=== PATIENT | female | born 1945 | race Caucasian/White ===

== ENCOUNTER 2017-07-05 07:23 | Inpatient (IN) | payer OTHER ==
[2017-07-05] VITALS (10 sets, daily range): BP systolic 93–134; BP diastolic 50–98
[~2017-07-05] VITALS: Ht 152.4 cm; Wt 88.5 kg
--- NOTE | ~2017-07-05 | O ---
[place], [place] OPERATIVE NOTE NAME: CIARA SANTA UNIT #: [id number] ROOM: 403 DOCTOR: YAEL KELLY MD BIRTHDATE: [birth year] DOS: GASTROENDOSCOPIC REPORT INDICATIONS: A 71-year-old patient who has presented with chief complaint of abdominal pain, nonspecific, patient with new onset atrial fibrillation. The patient with a slow cognition, hypothyroidism, bipolar and gastroesophageal reflux history. PROCEDURE: Today's procedure part of investigation is panendoscopy. PREMEDICATION: Versed and Diprivan. SCOPE: Olympus forward-viewing gastroscope Q10 video. REPORT: After putting the patient in the left lateral position and after application of lubricant to the scope, the scope was introduced. Thereafter, under direct visualization, I advanced through the length of esophagus without difficulty. Gastric pouch was entered. Mild gastritis seen. Duodenal nodule, duodenal bulb and second part of the duodenum connection was noticed. This nodule looks like hypertrophic Traci's gland; however, duodenal infiltration cannot be ruled out. We could not take biopsy from this patient since she has already had a Lovenox this morning and has been on order for Xarelto. We are going to keep the patient on Protonix 40 mg daily and we are going to organize a colonoscopy on her while she is in the hospital withholding Xarelto and Lovenox since she is going to be exposed to procedure and after that we are going to resume Xarelto therapy and Lovenox as may necessary. However, today, she can be restarted on Lovenox as well as tomorrow, but we will hold for Tuesday reassessment. YAEL KELLY MD CM:OPRECORD:OPERATIVE NOTE [id number] 50 YAEL KELLY MD 07/06/17 165 interface
--- NOTE | ~2017-07-05 | O ---
[place], [place] OPERATIVE NOTE NAME: CIARA SANTA UNIT #: [id number] ROOM: 403 DOCTOR: YAEL KELLY MD BIRTHDATE: [birth year] DOS: GASTROENDOSCOPIC REPORT. The patient has presented with abdominal pain, undergoing investigation. PROCEDURE: Today's procedure part of investigation is colonoscopy plus large colonic polyp at sigmoid colon, status post polypectomy with a snare. PREMEDICATION: Versed and Diprivan. SCOPE: Olympus forward-viewing colonoscope 10L video. REPORT: After putting the patient in the left lateral position and after application of lubricant to rectal pouch and digital examination, scope was introduced; thereafter, under direct visualization, advanced through the length of colon without difficulty. At sigmoid colon, a large polypoid lesion was snare polypectomized. Sample recovered. Scattered diverticulosis throughout the length of colon identified, base of the cecum explored, appendiceal orifice identified, and ileocecal valve was defined and photographed. The patient extubated, tolerated procedure well. IMPRESSION: Large colonic polyp at sigmoid colon, status post snare polypectomy, diverticulosis. PLAN AND DISCUSSION: Withholding anticoagulants 3 days, soft diet today, Protonix 40 mg daily and future evaluation of pathology on the polyp and pathology on the duodenal diverticulum. YAEL KELLY MD CM:OPRECORD:OPERATIVE NOTE 1105 [id number] YAEL KELLY MD 07/08/17 1707 interface
--- NOTE | ~2017-07-05 | CON ---
[place], [place] REPORT OF CONSULTATION NAME: CIARA SANTA UNIT #: [id number] ROOM: 403 DOCTOR: YAEL KELLY MD BIRTHDATE: [birth year] DOS: 07/06/2017 HISTORY OF PRESENT ILLNESS: A 71-year-old patient who has presented with chief complaint of abdominal pain. She mentions every day that in the morning she wakes up, she has abdominal pain. She is pointing somewhere mid abdomen and lower abdomen as well. The patient has been on anticoagulant. PAST MEDICAL HISTORY: Some difficulty with speech, hypothyroidism, renal lithiasis, duodenal ulcer, gastritis, bipolar disorder, renal insufficiency, gastroesophageal reflux. PAST SURGICAL HISTORY: Cholecystectomy, partial hysterectomy, renal stents, peripheral vascular surgery. SOCIAL HISTORY: Past smoker. Nonalcohol consumer. FAMILY HISTORY: Noncontributory. ALLERGIES: No known. MEDICATIONS: List has been reviewed. REVIEW OF SYSTEMS: HEENT: Denies double vision, blurred vision. RESPIRATORY: Denies acute shortness of breath. CARDIOVASCULAR: Denies acute chest pain. DIGESTIVE SYSTEM: Epigastric abdominal pain. PHYSICAL EXAMINATION: VITAL SIGNS: Borderline obese. HEENT: Head normocephalic, nontraumatic. Mouth and buccal mucosa benign, edentulous, no apthoid ulcer. NECK: Supple, no thyromegaly, no cervical lymphadenopathy. CHEST: Symmetric anatomy, equal expansion. No wheeze, no rhonchi. HEART: Normal sinus rhythm, no gallop, no murmur. ABDOMEN: Obese, large, soft. No hepato-organomegaly. Bowel sounds present. No pulsatile mass. EXTREMITIES: No cyanosis, no pedal edema. NEUROLOGIC: Alert and oriented, slow; however. IMPRESSION: Epigastric abdominal pain, history of atrial fibrillation, nephrolithiasis, hypothyroidism, gastroesophageal reflux disease symptomatology, bipolar disorder, renal insufficiency history. Due to the ambiguity of the symptomatology and expression, we are going to organize an endoscopy on her. Labs and records have been reviewed. Her lactic acid has been 1.2. Comprehensive metabolic panel: BUN and creatinine of 13 and 1.19 was noticed. Her chemistry normal. Liver function test normal. CT scan of the abdomen and pelvis, no acute process was reported. Troponin has been within normal limits. INR 1.1. Urine cultures have no bacteria. Hemoglobin [place], [place] REPORT OF CONSULTATION NAME: CIARA SANTA UNIT #: [id number] ROOM: 403 DOCTOR: YAEL KELLY MD BIRTHDATE: [birth year] A1c 5.6. PLAN AND DISCUSSION: Endoscopic assessment of upper tract and clinical reassessment. Recent KUB nonobstructive bowel pattern, bilateral nonobstructing renal calculi. YAEL KELLY MD CM:CONSTR:REPORT OF CONSULTATION 1448 07/07/17 0726 interface
--- NOTE | ~2017-07-05 | O ---
[place], [place] OPERATIVE NOTE NAME: CIARA SANTA UNIT #: [id number] ROOM: 403 DOCTOR: YAEL KELLY MD BIRTHDATE: [birth year] DOS: 07/08/2017 GASTROENDOSCOPIC REPORT. HISTORY OF PRESENT ILLNESS: This is a 71-year-old patient who has presented with abdominal pain, undergoing workup. The patient has been on anticoagulant. The patient was found to have a duodenal mass; however, 3 days ago, we could not biopsy the mass because the patient was actively on anticoagulants. Anticoagulant has been placed on hold. Her H and H has been followed. Her blood culture has been negative. PROCEDURE: Today's procedure part of investigation is panendoscopy plus biopsy of duodenal mass. PREMEDICATION: Versed and Diprivan. SCOPE: Olympus forward-viewing gastroscope Q10 video. REPORT: After putting the patient in the left lateral position and after application of lubricant to the scope, the scope was introduced. Thereafter, under direct visualization, I advanced through the length of the esophagus without difficulty. Esophagus cervicothoracic distally carefully examined. Multiple esophageal varicosity blebs were identified. This signifies underlying liver disease. Gastric pouch was entered. Mild gastritis seen in the duodenum. There is a mass in duodenal bulb. This is either hypertrophic Traci gland or primary mass. Therefore, multiple biopsies obtained. Scope was gradually withdrawn. The patient extubated, tolerated procedure well. IMPRESSION: Duodenal mass, status post biopsy, ruling out dysplastic cells, gastritis, esophageal varicosity blebs. I have reviewed the CT scan. The CT scan confirmatory of underlying liver disease with fatty infiltration, etiology of which is unclear; however, MISHRA is a possibility and it explains the portal pressure elevation and as a result esophageal varicosities. PLAN AND DISCUSSION: We are going to hold the anticoagulants for 3 days and restart in 3 days. Furthermore, we are going to proceed with colonoscopic evaluation today. [place], [place] OPERATIVE NOTE NAME: CIARA SANTA UNIT #: [id number] ROOM: 403 DOCTOR: YAEL KELLY MD BIRTHDATE: [birth year] YAEL KELLY MD CM:OPRECORD:OPERATIVE NOTE 1105 [id number] YAEL KELLY MD 07/08/17 1719 interface
[~2017-07-05 07:23] MED LIST: ALAVERT10 M1 PO; CIPRO500 MG PO; FLAGYL500 MG PO; LEVOTHYROXIN0.075 MG PO; LEVOXYL0.025 MG PO; NORCO 325 MG-51 TAB PO; PAROXETIN10 MG PO; VENTOLIN0.09 MG/AC INH; ZANTAC150 MG PO
[2017-07-05 07:58] LABS: BASO # 0.1 10*3/uL (0.0-0.1); BASO % 0.6 % (0.0-1.0); EOS # 0.2 10*3/uL (0.0-0.4); EOS % 2.3 % (1.0-4.0); HEMATOCRIT 48.8 % (37.0-47.0); HEMOGLOBIN 15.9 g/dl (12.0-16.0); LYMPH # 2.8 10*3/uL (1.3-4.4); LYMPH % 27.9 % (27.0-41.0); MEAN CORPUSCULAR HGB 29.7 pg (27.0-31.0); MEAN CORPUSCULAR HGB CONC 32.6 g/dl (33.0-37.0); MEAN PLATELET VOLUME 12.1 fl (9.6-12.3); MONO # 0.6 10*3/uL (0.1-1.0); MONO % 5.5 % (3.0-9.0); NEUT # 6.3 10*3/uL (2.3-7.9); NEUT % 63.3 % (47.0-73.0); PLATELET COUNT AUTOMATED 195 10*3/uL (130-400); RED BLOOD COUNT 5.36 10*6/uL (4.10-5.10); RED CELL DISTRI WIDTH 13.3 % (0-14.5); WHITE BLOOD COUNT 9.9 10*3/uL (4.8-10.8)
[2017-07-05 08:14] LABS: ALBUMIN 3.8 gm/dl (3.1-4.5); ALKALINE PHOSPHATASE 96 U/L (45-117); BUN 13 mg/dl (7-24); CHLORIDE 103 mmol/L (98-107); CREATININE 1.19 mg/dL (0.55-1.02); POTASSIUM 3.9 mmol/L (3.5-5.1); SGOT/AST 24 IU/L (3-35); SGPT/ALT 24 U/L (12-78); SODIUM 141 mmol/L (136-145); TOTAL PROTEIN 8.3 gm/dL (6.4-8.2)
[2017-07-05 08:15] LABS: TROPONIN I < 0.015 ng/ml (<0.045)
[2017-07-05 09:21] LABS: BILIRUBIN 1+ (NEGATIVE); BLOOD TRACE-INTACT (NEGATIVE); CLARITY SL CLOUDY (CLEAR); COLOR YELLOW (YELLOW); GLUCOSE NEGATIVE (NEGATIVE); KETONE NEGATIVE (NEGATIVE); LEUKO ESTERASE NEGATIVE (NEGATIVE); NITRITE NEGATIVE (NEGATIVE); PH 5.5 (5.0-9.0); SPECIFIC GRAVITY 1.025 (1.005-1.030); UROBILINOGEN 0.2 E.U./dl (0.2-1.0)
[2017-07-05 09:46] LABS: BACTERIA TRACE; CALCIUM OXALATE CRYSTALS TRACE; EPITHELIAL CELLS 18-20
[2017-07-06] VITALS (10 sets, daily range): BP systolic 95–169; BP diastolic 65–103
[2017-07-06 07:08] LABS: BASO % 0.8 % (0.0-1.0); EOS # 0.3 10*3/uL (0.0-0.4); EOS % 4.9 % (1.0-4.0); LYMPH # 1.5 10*3/uL (1.3-4.4); LYMPH % 28.3 % (27.0-41.0); MEAN CELL VOLUME 94.8 fl (81.0-99.0); MEAN CORPUSCULAR HGB 30.4 pg (27.0-31.0); MEAN PLATELET VOLUME 12.4 fl (9.6-12.3); MONO # 0.5 10*3/uL (0.1-1.0); NEUT # 2.9 10*3/uL (2.3-7.9); NEUT % 56.6 % (47.0-73.0); RED BLOOD COUNT 4.25 10*6/uL (4.10-5.10); RED CELL DISTRI WIDTH 13.5 % (0-14.5); WHITE BLOOD COUNT 5.1 10*3/uL (4.8-10.8)
[2017-07-06 07:09] LABS: HEMATOCRIT 40.3 % (37.0-47.0); HEMOGLOBIN 12.9 g/dl (12.0-16.0); PLATELET COUNT AUTOMATED 127 10*3/uL (130-400)
[2017-07-06 07:32] LABS: INTERNATIONAL NORM RATIO 1.1 (2.0-3.5)
[2017-07-06 07:35] LABS: CHLORIDE 108 mmol/L (98-107); MAGNESIUM 1.7 mg/dL (1.5-2.1); POTASSIUM 3.6 mmol/L (3.5-5.1); SODIUM 143 mmol/L (136-145)
[2017-07-06 07:42] LABS: ALBUMIN 2.9 gm/dl (3.1-4.5); ALKALINE PHOSPHATASE 70 U/L (45-117); BUN 8 mg/dl (7-24); CHOLESTEROL 144 mg/dL (<200); CREATININE 0.79 mg/dL (0.55-1.02); HDL CHOLESTEROL 29 mg/dl (40-60); LDL CHOLESTEROL 87 mg/dL (9-159); PHOSPHOROUS 2.9 mg/dL (2.5-4.9); SGOT/AST 16 IU/L (3-35); SGPT/ALT 17 U/L (12-78); TOTAL PROTEIN 6.3 gm/dL (6.4-8.2); TRIGLYCERIDES 142 mg/dl (<150); VLDL CHOLESTEROL 28 mg/dL (6-40)
[2017-07-06 08:34] LABS: VITAMIN D, 25-HYDROXY 32.7 ng/mL (30-100)
[2017-07-07] VITALS: BP 142/88
[2017-07-07 07:11] LABS: BASO % 0.5 % (0.0-1.0); EOS # 0.2 10*3/uL (0.0-0.4); EOS % 3.8 % (1.0-4.0); HEMATOCRIT 40.3 % (37.0-47.0); LYMPH # 1.4 10*3/uL (1.3-4.4); MEAN CELL VOLUME 93.3 fl (81.0-99.0); MEAN CORPUSCULAR HGB 30.1 pg (27.0-31.0); MEAN CORPUSCULAR HGB CONC 32.3 g/dl (33.0-37.0); MEAN PLATELET VOLUME 12.1 fl (9.6-12.3); MONO # 0.5 10*3/uL (0.1-1.0); MONO % 7.4 % (3.0-9.0); NEUT # 3.9 10*3/uL (2.3-7.9); PLATELET COUNT AUTOMATED 141 10*3/uL (130-400); RED BLOOD COUNT 4.32 10*6/uL (4.10-5.10); RED CELL DISTRI WIDTH 13.1 % (0-14.5); WHITE BLOOD COUNT 6.1 10*3/uL (4.8-10.8)
[2017-07-07 07:45] LABS: BUN 8 mg/dl (7-24); CHLORIDE 107 mmol/L (98-107); CREATININE 0.77 mg/dL (0.55-1.02); MAGNESIUM 1.6 mg/dL (1.5-2.1); PHOSPHOROUS 2.5 mg/dL (2.5-4.9); POTASSIUM 3.6 mmol/L (3.5-5.1); SODIUM 143 mmol/L (136-145)
[2017-07-07 08:00] VITALS: BP 121/70
[2017-07-07] MEDS ORDERED: XARE20MG PO (09:02)
[2017-07-07] MEDS ORDERED: DILTIAZEM 24HR120 MG PO (09:02)
[2017-07-07] MEDS ORDERED: Synthroid,Levo25 MCG PO (09:02)
[2017-07-07] MEDS ORDERED: PANTOPRAZOLE SO40 MG PO (09:02)
[2017-07-07] MEDS ORDERED: B12,B-12,B 12500 MC1 PO (09:03)
[2017-07-07 12:00] VITALS: BP 128/74
[2017-07-07 16:00] VITALS: BP 116/70
[2017-07-07 20:00] VITALS: BP 109/64
[2017-07-08] VITALS (7 sets, daily range): BP systolic 114–149; BP diastolic 75–96
[2017-07-08 06:42] LABS: BASO % 0.4 % (0.0-1.0); EOS # 0.2 10*3/uL (0.0-0.4); EOS % 3.1 % (1.0-4.0); HEMOGLOBIN 13.8 g/dl (12.0-16.0); LYMPH # 1.4 10*3/uL (1.3-4.4); LYMPH % 20.5 % (27.0-41.0); MEAN CELL VOLUME 92.3 fl (81.0-99.0); MEAN CORPUSCULAR HGB 30.3 pg (27.0-31.0); MEAN CORPUSCULAR HGB CONC 32.9 g/dl (33.0-37.0); MEAN PLATELET VOLUME 12.4 fl (9.6-12.3); MONO # 0.4 10*3/uL (0.1-1.0); MONO % 6.5 % (3.0-9.0); NEUT # 4.7 10*3/uL (2.3-7.9); NEUT % 69.4 % (47.0-73.0); PLATELET COUNT AUTOMATED 146 10*3/uL (130-400); RED BLOOD COUNT 4.55 10*6/uL (4.10-5.10); RED CELL DISTRI WIDTH 13.3 % (0-14.5); WHITE BLOOD COUNT 6.7 10*3/uL (4.8-10.8)
== END 2017-07-08 17:23 | disposition home or self-care (01) | DRG 308 ==
LOC: ED 07:23 → EDHOLD 08:56 → 4E 08:56
PROVIDERS: Family Medicine Adult Medicine; Internal Medicine; ADMIT Internal Medicine
PROC: 0DJ08ZZ Inspection of Upper Intestinal Tract, Via Natural or Artificial Opening Endoscopic (ICD-10-PCS; 2017-07-06)
PROC: 0DB98ZX Excision of Duodenum, Via Natural or Artificial Opening Endoscopic, Diagnostic (ICD-10-PCS; principal; 2017-07-08)
PROC: 0DBN8ZZ Excision of Sigmoid Colon, Via Natural or Artificial Opening Endoscopic (ICD-10-PCS; principal; 2017-07-08)
DX: I48.91 Unspecified atrial fibrillation (principal); N17.0 Acute kidney failure with tubular necrosis; E44.0 Moderate protein-calorie malnutrition; K57.32 Diverticulitis of large intestine without perforation or abscess without bleeding; N18.3 Chronic kidney disease, stage 3 (moderate); K29.80 Duodenitis without bleeding; N20.0 Calculus of kidney; K29.70 Gastritis, unspecified, without bleeding; F31.9 Bipolar disorder, unspecified; J45.909 Unspecified asthma, uncomplicated; K21.9 Gastro-esophageal reflux disease without esophagitis; E03.9 Hypothyroidism, unspecified; K44.9 Diaphragmatic hernia without obstruction or gangrene; E53.8 Deficiency of other specified B group vitamins; E66.09 Other obesity due to excess calories; R51 Headache; K57.30 Diverticulosis of large intestine without perforation or abscess without bleeding; Z90.710 Acquired absence of both cervix and uterus; Z82.49 Family history of ischemic heart disease and other diseases of the circulatory system; Z98.42 Cataract extraction status, left eye; Z98.41 Cataract extraction status, right eye; Z90.49 Acquired absence of other specified parts of digestive tract; Z80.1 Family history of malignant neoplasm of trachea, bronchus and lung; Z87.11 Personal history of peptic ulcer disease; Z91.19 Patient's noncompliance with other medical treatment and regimen; Z81.8 Family history of other mental and behavioral disorders; Z68.38 Body mass index [BMI] 38.0-38.9, adult; D12.5 Benign neoplasm of sigmoid colon

== ENCOUNTER → 2017-09-16 | Day surgery (SDC) | payer OTHER ==
[~2017-09-16] VITALS: Ht 152.4 cm; Wt 71.7 kg
[~2017-09-16] MED LIST changes: +B12,B-12,B 12500 MC1 PO; +DILTIAZEM 24HR120 MG PO; +PANTOPRAZOLE SO40 MG PO; +Synthroid,Levo25 MCG PO; +XARE20MG PO
--- NOTE | ~2017-09-16 | O ---
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 ALLERGIES: No known medication. FAMILY HISTORY: Noncontributory. PAST SURGICAL HISTORY: Hysterectomy. PAST MEDICAL HISTORY: Hypothyroidism. PROCEDURE: Today's procedure part of investigation is panendoscopy plus biopsy. PREMEDICATION: Versed and Diprivan. SCOPE: Olympus forward-viewing gastroscope Q10 video. REPORT: After putting the patient in the left lateral position and after application of lubricant to the scope, the scope was introduced; thereafter, under direct visualization, advanced through the length of the esophagus without difficulty into gastric pouch into duodenal bulb and in the duodenal bulb, there was a large polypoid broad-based lesion, which was photographed multiple times in depth and was biopsied. The patient extubated, tolerated procedure well. IMPRESSION: Polypoid lesion in the duodenal bulb with multiple biopsies ruling out dysplasia. PLAN AND DISCUSSION: Otherwise, continuation with her basic medications ensuring that the patient remains on PPI. Thank you very much indeed for your kind referral past. 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 Workup in progress. We will follow on this patient. Thank you very much indeed. [place], [place] OPERATIVE NOTE NAME: CIARA SANTA UNIT #: [id number] ROOM: DOCTOR: YAEL KELLY MD BIRTHDATE: [birth year] YAEL KELLY MD CM:OPRECORD:OPERATIVE NOTE 1423 [id number] YAEL KELLY MD 09/16/17 1455 interface
[2017-09-16 12:30] VITALS: BP 152/95
[2017-09-16 14:20] VITALS: BP 109/71
[2017-09-16 14:35] VITALS: BP 120/84
[2017-09-16 14:50] VITALS: BP 129/79
== END ==
LOC: SDC 09-12 13:15
DX: D13.2 Benign neoplasm of duodenum (principal); Z90.710 Acquired absence of both cervix and uterus; E03.9 Hypothyroidism, unspecified; I10 Essential (primary) hypertension; J45.909 Unspecified asthma, uncomplicated; E11.9 Type 2 diabetes mellitus without complications; K21.9 Gastro-esophageal reflux disease without esophagitis; F41.9 Anxiety disorder, unspecified; F32.9 Major depressive disorder, single episode, unspecified; Z87.891 Personal history of nicotine dependence; Z98.890 Other specified postprocedural states; I48.91 Unspecified atrial fibrillation; Z82.49 Family history of ischemic heart disease and other diseases of the circulatory system

== ENCOUNTER → 2017-09-20 | Outpatient (CLI) | payer OTHER | END | disposition home or self-care (01) | LOC: RESCLI 01:20 | DX: I48.0 Paroxysmal atrial fibrillation (principal); E03.9 Hypothyroidism, unspecified; E53.8 Deficiency of other specified B group vitamins; J45.30 Mild persistent asthma, uncomplicated; K21.9 Gastro-esophageal reflux disease without esophagitis; I10 Essential (primary) hypertension ==

== ENCOUNTER 2017-11-16 12:35 | Inpatient (IN) | payer OTHER ==
[~2017-11-16] VITALS: Ht 157 cm; Wt 75.0 kg
[2017-11-16] VITALS (8 sets, daily range): BP systolic 90–116; BP diastolic 56–85
[2017-11-16 13:24] LABS: BASO % 0.7 % (0.0-1.0); EOS % 0.2 % (1.0-4.0); HEMATOCRIT 44.6 % (37.0-47.0); HEMOGLOBIN 14.8 g/dl (12.0-16.0); LYMPH # 1.7 10*3/uL (1.3-4.4); LYMPH % 36.7 % (27.0-41.0); MEAN CELL VOLUME 89.2 fl (81.0-99.0); MEAN CORPUSCULAR HGB 29.6 pg (27.0-31.0); MEAN CORPUSCULAR HGB CONC 33.2 g/dl (33.0-37.0); MEAN PLATELET VOLUME 12.8 fl (9.6-12.3); MONO # 0.6 10*3/uL (0.1-1.0); MONO % 14.2 % (3.0-9.0); NEUT # 2.2 10*3/uL (2.3-7.9); NEUT % 47.8 % (47.0-73.0); PLATELET COUNT AUTOMATED 144 10*3/uL (130-400); RED CELL DISTRI WIDTH 13.2 % (0-14.5); WHITE BLOOD COUNT 4.5 10*3/uL (4.8-10.8)
[2017-11-16 13:36] LABS: ACT PARTIAL THROMBO TIME 24.2 SECONDS (20.8-31.5); INTERNATIONAL NORM RATIO 1.1 (2.0-3.5)
[2017-11-16 13:39] LABS: ALBUMIN 3.3 gm/dl (3.1-4.5); CREATININE 1.32 mg/dL (0.55-1.02); POTASSIUM 3.5 mmol/L (3.5-5.1); TROPONIN I 0.016 ng/ml (<0.045)
[2017-11-16 14:43] LABS: BILIRUBIN 2+ (NEGATIVE); BLOOD NEGATIVE (NEGATIVE); CLARITY SL CLOUDY (CLEAR); COLOR YELLOW (YELLOW); GLUCOSE NEGATIVE (NEGATIVE); KETONE TRACE (NEGATIVE); NITRITE NEGATIVE (NEGATIVE); PH 5.5 (5.0-9.0); SPECIFIC GRAVITY >= 1.030 (1.005-1.030)
[2017-11-16 14:58] LABS: LEUKO ESTERASE NEGATIVE (NEGATIVE)
[2017-11-16 14:59] LABS: BACTERIA 2+; EPITHELIAL CELLS TNTC; RBC 0-2 rbc/hpf (0-2)
[2017-11-16] MEDS ORDERED: SYNTHROID25 MCG PO (17:59)
[2017-11-16] MEDS ORDERED: XARE20MG PO (17:59)
[2017-11-16] MEDS ORDERED: Diltiazem180 MG PO (18:00)
[2017-11-16] MEDS ORDERED: PROTONIX40 MG PO (18:00)
[2017-11-16] MEDS ORDERED: RANITIDINE HCL150 M1 PO ×2 (18:01→20:07)
[2017-11-16] MEDS ORDERED: VITAMIN B121000 MC1 PO (20:06)
[2017-11-17] VITALS: BP 104/72; BP 87/59
[2017-11-17 07:08] LABS: BASO % 0.6 % (0.0-1.0); EOS # 0.1 10*3/uL (0.0-0.4); EOS % 2.1 % (1.0-4.0); HEMATOCRIT 39.3 % (37.0-47.0); LYMPH # 1.2 10*3/uL (1.3-4.4); MEAN CORPUSCULAR HGB 29.3 pg (27.0-31.0); MEAN CORPUSCULAR HGB CONC 31.8 g/dl (33.0-37.0); MEAN PLATELET VOLUME 13.4 fl (9.6-12.3); MONO # 0.5 10*3/uL (0.1-1.0); MONO % 15.2 % (3.0-9.0); NEUT # 1.5 10*3/uL (2.3-7.9); NEUT % 44.8 % (47.0-73.0); PLATELET COUNT AUTOMATED 105 10*3/uL (130-400); RED BLOOD COUNT 4.26 10*6/uL (4.10-5.10); RED CELL DISTRI WIDTH 13.4 % (0-14.5); WHITE BLOOD COUNT 3.3 10*3/uL (4.8-10.8)
[2017-11-17 07:09] LABS: HEMOGLOBIN 12.5 g/dl (12.0-16.0); MEAN CELL VOLUME 92.3 fl (81.0-99.0)
[2017-11-17 07:31] LABS: ALBUMIN 2.9 gm/dl (3.1-4.5); ALKALINE PHOSPHATASE 61 U/L (45-117); BUN 18 mg/dl (7-24); CHLORIDE 109 mmol/L (98-107); CHOLESTEROL 102 mg/dL (<200); CREATININE 0.98 mg/dL (0.55-1.02); HDL CHOLESTEROL 31 mg/dl (40-60); LDL CHOLESTEROL 51 mg/dL (9-159); PHOSPHOROUS 3.2 mg/dL (2.5-4.9); POTASSIUM 3.4 mmol/L (3.5-5.1); SGOT/AST 58 IU/L (3-35); SGPT/ALT 33 U/L (12-78); SODIUM 143 mmol/L (136-145); TRIGLYCERIDES 101 mg/dl (<150); VLDL CHOLESTEROL 20 mg/dL (6-40)
[2017-11-17 07:56] LABS: VITAMIN D, 25-HYDROXY 21.5 ng/mL (30-100)
[2017-11-17 08:00] VITALS: BP 95/63
[2017-11-17 12:00] VITALS: BP 103/67
[2017-11-17 16:00] VITALS: BP 111/65
[2017-11-17 20:00] VITALS: BP 127/71
[2017-11-18] VITALS: BP 105/55
[2017-11-18 07:34] LABS: BASO % 0.3 % (0.0-1.0); EOS # 0.1 10*3/uL (0.0-0.4); EOS % 2.1 % (1.0-4.0); HEMATOCRIT 38.2 % (37.0-47.0); HEMOGLOBIN 12.2 g/dl (12.0-16.0); LYMPH # 1.2 10*3/uL (1.3-4.4); LYMPH % 42.7 % (27.0-41.0); MEAN CELL VOLUME 93.2 fl (81.0-99.0); MEAN CORPUSCULAR HGB 29.8 pg (27.0-31.0); MEAN CORPUSCULAR HGB CONC 31.9 g/dl (33.0-37.0); MEAN PLATELET VOLUME 12.9 fl (9.6-12.3); MONO # 0.3 10*3/uL (0.1-1.0); MONO % 11.1 % (3.0-9.0); NEUT # 1.3 10*3/uL (2.3-7.9); NEUT % 43.5 % (47.0-73.0); PLATELET COUNT AUTOMATED 96 10*3/uL (130-400); RED CELL DISTRI WIDTH 13.3 % (0-14.5); WHITE BLOOD COUNT 2.9 10*3/uL (4.8-10.8)
[2017-11-18 07:48] LABS: ALBUMIN 2.7 gm/dl (3.1-4.5); ALKALINE PHOSPHATASE 61 U/L (45-117); BUN 10 mg/dl (7-24); CHLORIDE 114 mmol/L (98-107); CREATININE 0.83 mg/dL (0.55-1.02); POTASSIUM 3.6 mmol/L (3.5-5.1); SGOT/AST 41 IU/L (3-35); SGPT/ALT 26 U/L (12-78); SODIUM 145 mmol/L (136-145); TOTAL PROTEIN 5.7 gm/dL (6.4-8.2)
[2017-11-18 08:00] VITALS: BP 110/78
[2017-11-18 12:00] VITALS: BP 113/62
[2017-11-18] MEDS ORDERED: Synthroid,Levo50 MCG PO (12:30)
[2017-11-18] MEDS ORDERED: ZOFRAN ODT4 MG SL (12:35)
[2017-11-18] MEDS ORDERED: PROTONIX40 MG PO (12:35)
[2017-11-18] MEDS ORDERED: XARE20MG PO (12:35)
[2017-11-18] MEDS ORDERED: Diltiazem180 MG PO (12:35)
== END 2017-11-18 13:24 | disposition home or self-care (01) | DRG 391 ==
LOC: ED 12:35 → 5E 16:37 → EDHOLD 16:37 → 5E 17:01 → UNDODEPER 22:24 → 5E 11-18 08:02
PROVIDERS: Emergency Medicine; Internal Medicine Hospice and Palliative Medicine
DX: A08.4 Viral intestinal infection, unspecified (principal); N17.0 Acute kidney failure with tubular necrosis; E44.0 Moderate protein-calorie malnutrition; D68.9 Coagulation defect, unspecified; N17.1 Acute kidney failure with acute cortical necrosis; D69.6 Thrombocytopenia, unspecified; N28.1 Cyst of kidney, acquired; I48.2 Chronic atrial fibrillation; E87.8 Other disorders of electrolyte and fluid balance, not elsewhere classified; D72.819 Decreased white blood cell count, unspecified; E03.9 Hypothyroidism, unspecified; E53.8 Deficiency of other specified B group vitamins; E66.09 Other obesity due to excess calories; E86.0 Dehydration; F31.9 Bipolar disorder, unspecified; J45.20 Mild intermittent asthma, uncomplicated; K21.9 Gastro-esophageal reflux disease without esophagitis; N20.0 Calculus of kidney; R91.1 Solitary pulmonary nodule; Z96.0 Presence of urogenital implants; K43.9 Ventral hernia without obstruction or gangrene; K44.9 Diaphragmatic hernia without obstruction or gangrene; T45.515A Adverse effect of anticoagulants, initial encounter; E78.5 Hyperlipidemia, unspecified; J44.9 Chronic obstructive pulmonary disease, unspecified; F41.9 Anxiety disorder, unspecified; I95.1 Orthostatic hypotension; E87.6 Hypokalemia; E55.9 Vitamin D deficiency, unspecified; N18.9 Chronic kidney disease, unspecified; K57.90 Diverticulosis of intestine, part unspecified, without perforation or abscess without bleeding; Z79.899 Other long term (current) drug therapy; Z87.81 Personal history of (healed) traumatic fracture; Z98.42 Cataract extraction status, left eye; Z98.41 Cataract extraction status, right eye; Z90.49 Acquired absence of other specified parts of digestive tract; Z90.711 Acquired absence of uterus with remaining cervical stump; Z87.891 Personal history of nicotine dependence; Z80.1 Family history of malignant neoplasm of trachea, bronchus and lung; Z81.8 Family history of other mental and behavioral disorders; Z91.14 Patient's other noncompliance with medication regimen; Z68.30 Body mass index [BMI] 30.0-30.9, adult

== ENCOUNTER 2018-04-18 11:49 | Inpatient (IN) | payer OTHER ==
[~2018-04-18] VITALS: Ht 154.9 cm; Wt 68.0 kg
[~2018-04-18 11:49] MED LIST changes: +Diltiazem180 MG PO; +PROTONIX40 MG PO; +RANITIDINE HCL150 M1 PO; +SYNTHROID25 MCG PO; +Synthroid,Levo50 MCG PO; +VITAMIN B121000 MC1 PO; +ZOFRAN ODT4 MG SL
[2018-04-18 11:51] VITALS: BP 126/88
[2018-04-18 16:18] LABS: BASO % 0.4 % (0.0-1.0); EOS # 0.3 10*3/uL (0.0-0.4); EOS % 3.8 % (1.0-4.0); HEMATOCRIT 44.6 % (37.0-47.0); HEMOGLOBIN 13.9 g/dl (12.0-16.0); LYMPH # 1.8 10*3/uL (1.3-4.4); LYMPH % 22.8 % (27.0-41.0); MEAN CORPUSCULAR HGB 28.4 pg (27.0-31.0); MEAN CORPUSCULAR HGB CONC 31.2 g/dl (33.0-37.0); MEAN PLATELET VOLUME 11.5 fl (9.6-12.3); MONO # 0.5 10*3/uL (0.1-1.0); MONO % 5.8 % (3.0-9.0); NEUT # 5.3 10*3/uL (2.3-7.9); NEUT % 66.9 % (47.0-73.0); PLATELET COUNT AUTOMATED 179 10*3/uL (130-400); RED CELL DISTRI WIDTH 13.8 % (0-14.5)
[2018-04-18 16:28] LABS: CREATININE 1.16 mg/dL (0.55-1.02); POTASSIUM 4.2 mmol/L (3.5-5.1)
== END 2018-04-18 16:59 | disposition left against medical advice (07) | DRG 563 ==
LOC: ED 11:49 → EDHOLD 16:02 → 5E 16:27
PROVIDERS: Emergency Medicine
PROC: 2W3TX1Z Immobilization of Left Foot using Splint (ICD-10-PCS; principal; 2018-04-18)
DX: S93.402A Sprain of unspecified ligament of left ankle, initial encounter (principal); I48.2 Chronic atrial fibrillation; F31.9 Bipolar disorder, unspecified; J45.909 Unspecified asthma, uncomplicated; N18.9 Chronic kidney disease, unspecified; K21.9 Gastro-esophageal reflux disease without esophagitis; E03.9 Hypothyroidism, unspecified; Z96.1 Presence of intraocular lens; Z53.21 Procedure and treatment not carried out due to patient leaving prior to being seen by health care provider; E66.9 Obesity, unspecified; X58.XXXA Exposure to other specified factors, initial encounter; K57.90 Diverticulosis of intestine, part unspecified, without perforation or abscess without bleeding; Z98.42 Cataract extraction status, left eye; Z98.41 Cataract extraction status, right eye; Z90.49 Acquired absence of other specified parts of digestive tract; Z90.710 Acquired absence of both cervix and uterus; Z87.891 Personal history of nicotine dependence; Z82.3 Family history of stroke; Z82.49 Family history of ischemic heart disease and other diseases of the circulatory system; Z80.1 Family history of malignant neoplasm of trachea, bronchus and lung; Z79.899 Other long term (current) drug therapy; Z81.8 Family history of other mental and behavioral disorders; Z68.28 Body mass index [BMI] 28.0-28.9, adult; Y93.89 Activity, other specified; Y92.89 Other specified places as the place of occurrence of the external cause; Y99.8 Other external cause status

== ENCOUNTER 2019-05-23 07:42 | Emergency (ER) | payer OTHER ==
[~2019-05-23] VITALS: Ht 154.9 cm; Wt 70.3 kg
[~2019-05-23 07:42] MED LIST changes: +ASPIR-TRIN325 MG PO; +ELIQUIS5 M1 PO; +LEVOXYL88 MCG PO; +LIPITOR80 MG PO; +METOPROLOL25 MG PO
[2019-05-23 08:35] LABS: BASO % 0.5 % (0.0-1.0); EOS # 0.2 10*3/uL (0.0-0.4); EOS % 3.8 % (1.0-4.0); HEMATOCRIT 42.5 % (37.0-47.0); LYMPH # 1.6 10*3/uL (1.3-4.4); LYMPH % 25.2 % (27.0-41.0); MEAN CELL VOLUME 95.1 fl (81.0-99.0); MEAN CORPUSCULAR HGB 29.1 pg (27.0-31.0); MEAN CORPUSCULAR HGB CONC 30.6 g/dl (33.0-37.0); MEAN PLATELET VOLUME 12.6 fl (9.6-12.3); MONO # 0.5 10*3/uL (0.1-1.0); MONO % 8.1 % (3.0-9.0); NEUT # 3.9 10*3/uL (2.3-7.9); NEUT % 62.2 % (47.0-73.0); PLATELET COUNT AUTOMATED 154 10*3/uL (130-400); RED BLOOD COUNT 4.47 10*6/uL (4.10-5.10); RED CELL DISTRI WIDTH 13.9 % (0-14.5); WHITE BLOOD COUNT 6.3 10*3/uL (4.8-10.8)
[2019-05-23 08:45] LABS: ACT PARTIAL THROMBO TIME 27.7 SECONDS (20.0-32.1); INTERNATIONAL NORM RATIO 1.1 (2.0-3.5)
[2019-05-23 08:49] LABS: ALBUMIN 3.3 gm/dl (3.1-4.5); ALKALINE PHOSPHATASE 207 U/L (45-117); BUN 14 mg/dl (7-24); CHLORIDE 111 mmol/L (98-107); POTASSIUM 4.2 mmol/L (3.5-5.1); SGOT/AST 28 IU/L (3-35); SGPT/ALT 23 U/L (12-78); SODIUM 144 mmol/L (136-145); TOTAL PROTEIN 7.2 gm/dL (6.4-8.2); URIC ACID 7.4 mg/dL (2.6-6.0)
[2019-05-23] MEDS ORDERED: NORCO 5-325 TA1 EACH PO (11:42)
[2019-05-23] MEDS ORDERED: PREDNISONE50 MG PO (11:42)
== END 2019-05-23 11:53 | disposition home or self-care (01) ==
LOC: ED 07:42
PROVIDERS: Emergency Medicine
DX: M10.071 Idiopathic gout, right ankle and foot (principal); I12.9 Hypertensive chronic kidney disease with stage 1 through stage 4 chronic kidney disease, or unspecified chronic kidney disease; E11.22 Type 2 diabetes mellitus with diabetic chronic kidney disease; N18.9 Chronic kidney disease, unspecified; J45.909 Unspecified asthma, uncomplicated; I48.2 Chronic atrial fibrillation; K21.9 Gastro-esophageal reflux disease without esophagitis; E03.9 Hypothyroidism, unspecified; E66.9 Obesity, unspecified; Z79.899 Other long term (current) drug therapy; Z79.82 Long term (current) use of aspirin; Z90.710 Acquired absence of both cervix and uterus; Z90.49 Acquired absence of other specified parts of digestive tract; Z87.891 Personal history of nicotine dependence; W50.0XXA Accidental hit or strike by another person, initial encounter; Y93.89 Activity, other specified; Y92.89 Other specified places as the place of occurrence of the external cause; Y99.8 Other external cause status

== ENCOUNTER → 2021-01-12 | Outpatient (CLI) | payer OTHER ==
[~2021-01-12] MED LIST changes: +NORCO 5-325 TA1 EACH PO; +PREDNISONE50 MG PO
== END | disposition home or self-care (01) ==
LOC: LAB 08:00
PROVIDERS: ATTEND Internal Medicine
DX: R19.7 Diarrhea, unspecified (principal)

== ENCOUNTER 2021-03-12 14:28 | Emergency (ER) | payer OTHER ==
[~2021-03-12] VITALS: Wt 69.9 kg
[2021-03-12 14:35] VITALS: BP 122/77
[2021-03-12 15:06] LABS: BASO # 0.1 10*3/uL (0.0-0.1); BASO % 0.8 % (0.0-1.0); EOS # 0.5 10*3/uL (0.0-0.4); EOS % 7.6 % (1.0-4.0); HEMATOCRIT 42.3 % (37.0-47.0); LYMPH # 1.6 10*3/uL (1.3-4.4); LYMPH % 26.5 % (27.0-41.0); MEAN CELL VOLUME 100.5 fl (81.0-99.0); MEAN CORPUSCULAR HGB 32.1 pg (27.0-31.0); MEAN CORPUSCULAR HGB CONC 31.9 g/dl (33.0-37.0); MONO # 0.5 10*3/uL (0.1-1.0); MONO % 8.3 % (3.0-9.0); NEUT # 3.4 10*3/uL (2.3-7.9); NEUT % 56.5 % (47.0-73.0); PLATELET COUNT AUTOMATED 130 10*3/uL (130-400); RED BLOOD COUNT 4.21 10*6/uL (4.10-5.10); RED CELL DISTRI WIDTH 13.7 % (0-14.5)
[2021-03-12 15:20] LABS: ACT PARTIAL THROMBO TIME 26.5 SECONDS (20.0-32.1); INTERNATIONAL NORM RATIO 1.2 (2.0-3.5)
[2021-03-12 15:23] LABS: ALKALINE PHOSPHATASE 131 U/L (45-117); BUN 11 mg/dl (7-24); CHLORIDE 111 mmol/L (98-107); CREATININE 1.14 mg/dL (0.55-1.02); POTASSIUM 4.2 mmol/L (3.5-5.1); SGOT/AST 39 IU/L (3-35); SGPT/ALT 29 U/L (12-78); SODIUM 142 mmol/L (136-145); TOTAL PROTEIN 6.8 gm/dL (6.4-8.2)
[2021-03-12 15:27] LABS: TROPONIN I < 0.015 ng/ml (<0.045)
[2021-03-12 17:35] VITALS: BP 122/70
== END 2021-03-12 17:53 | disposition left against medical advice (07) ==
LOC: ED 14:28 → EDHOLD 15:58 → ED 17:53
PROVIDERS: Emergency Medicine
DX: I48.20 Chronic atrial fibrillation, unspecified (principal); I63.9 Cerebral infarction, unspecified; J45.909 Unspecified asthma, uncomplicated; I12.9 Hypertensive chronic kidney disease with stage 1 through stage 4 chronic kidney disease, or unspecified chronic kidney disease; K21.9 Gastro-esophageal reflux disease without esophagitis; N18.9 Chronic kidney disease, unspecified; M10.9 Gout, unspecified; Z79.899 Other long term (current) drug therapy; Z79.82 Long term (current) use of aspirin; Z98.890 Other specified postprocedural states; Z90.711 Acquired absence of uterus with remaining cervical stump

== ENCOUNTER 2021-05-06 11:21 | Inpatient (IN) | payer OTHER ==
[~2021-05-06] VITALS: Wt 71.2 kg
[2021-05-06 12:50] LABS: BASO % 0.4 % (0.0-1.0); EOS # 0.1 10*3/uL (0.0-0.4); EOS % 0.9 % (1.0-4.0); HEMATOCRIT 43.5 % (37.0-47.0); LYMPH # 0.8 10*3/uL (1.3-4.4); LYMPH % 15.5 % (27.0-41.0); MEAN CELL VOLUME 98.6 fl (81.0-99.0); MEAN CORPUSCULAR HGB CONC 32.4 g/dl (33.0-37.0); MEAN PLATELET VOLUME 12.1 fl (9.6-12.3); MONO # 0.3 10*3/uL (0.1-1.0); NEUT # 4.1 10*3/uL (2.3-7.9); PLATELET COUNT AUTOMATED 99 10*3/uL (130-400); RED BLOOD COUNT 4.41 10*6/uL (4.10-5.10); RED CELL DISTRI WIDTH 13.5 % (0-14.5); WHITE BLOOD COUNT 5.3 10*3/uL (4.8-10.8)
[2021-05-06 12:54] VITALS: BP 134/79
[2021-05-06 13:00] VITALS: BP 134/79
[2021-05-06 13:11] LABS: ALBUMIN 3.1 gm/dl (3.1-4.5); ALKALINE PHOSPHATASE 118 U/L (45-117); BUN 11 mg/dl (7-24); CHLORIDE 110 mmol/L (98-107); CREATININE 0.88 mg/dL (0.55-1.02); LIPASE 204 U/L (73-393); POTASSIUM 4.2 mmol/L (3.5-5.1); SGOT/AST 37 IU/L (3-35); SGPT/ALT 34 U/L (12-78); SODIUM 141 mmol/L (136-145); TOTAL PROTEIN 7.2 gm/dL (6.4-8.2)
[2021-05-06 13:15] LABS: TROPONIN I < 0.015 ng/ml (<0.045)
[2021-05-06 13:30] VITALS: BP 143/88
[2021-05-06 14:30] VITALS: BP 144/99
[2021-05-06 15:48] LABS: BILIRUBIN 1+ (Negative); BLOOD 1+ (Negative); CLARITY Turbid (Clear); COLOR Red (Yellow); GLUCOSE Negative (Negative); KETONE Negative (Negative); LEUKO ESTERASE 2+ (Negative); NITRITE Positive (Negative); UROBILINOGEN 0.2 E.U./dl (0.0-1.0)
[2021-05-06 16:29] LABS: BACTERIA 2+; EPITHELIAL CELLS 0-2; MUCOUS TRACE; RBC TNTC rbc/hpf (0-2); WBC TNTC wbc/hpf (0-5)
[2021-05-06] MEDS ORDERED: ALLOPURINOL100 MG PO (17:49)
[2021-05-06] MEDS ORDERED: VITAMIN D350 MCG PO (17:49)
[2021-05-06] MEDS ORDERED: TOPIRAMATE25 M3 PO (17:51)
[2021-05-06] MEDS ORDERED: 'CIPRO500 M1 PO (17:52)
[2021-05-06 20:00] VITALS: BP 117/78
[2021-05-07] VITALS: BP 101/51
[2021-05-07 05:59] LABS: BUN 11 mg/dl (7-24); CHLORIDE 112 mmol/L (98-107); CREATININE 0.76 mg/dL (0.55-1.02); POTASSIUM 3.8 mmol/L (3.5-5.1); SODIUM 141 mmol/L (136-145)
[2021-05-07 06:32] LABS: BASO % 0.6 % (0.0-1.0); EOS # 0.1 10*3/uL (0.0-0.4); EOS % 2.9 % (1.0-4.0); HEMATOCRIT 40.3 % (37.0-47.0); LYMPH # 1.6 10*3/uL (1.3-4.4); LYMPH % 33.1 % (27.0-41.0); MEAN CELL VOLUME 97.6 fl (81.0-99.0); MEAN CORPUSCULAR HGB 31.5 pg (27.0-31.0); MEAN CORPUSCULAR HGB CONC 32.3 g/dl (33.0-37.0); MONO # 0.4 10*3/uL (0.1-1.0); MONO % 8.7 % (3.0-9.0); NEUT # 2.6 10*3/uL (2.3-7.9); NEUT % 54.5 % (47.0-73.0); PLATELET COUNT AUTOMATED 110 10*3/uL (130-400); RED BLOOD COUNT 4.13 10*6/uL (4.10-5.10); RED CELL DISTRI WIDTH 13.4 % (0-14.5); WHITE BLOOD COUNT 4.8 10*3/uL (4.8-10.8)
[2021-05-07 08:00] VITALS: BP 96/71
[2021-05-07 12:00] VITALS: BP 110/65
[2021-05-07 16:00] VITALS: BP 112/60
[2021-05-07 21:04] VITALS: BP 126/87
[2021-05-08 00:16] VITALS: BP 105/64
[2021-05-08 08:06] VITALS: BP 123/70
[2021-05-08 11:07] VITALS: BP 112/70
[2021-05-08] MEDS ORDERED: TAMSULOSIN HCL0.4 MG PO (13:18)
== END 2021-05-08 14:45 | disposition home or self-care (01) | DRG 392 ==
LOC: ED 11:21 → EDHOLD 15:09 → 5E 15:09
PROVIDERS: Physician Assistant; ADMIT Internal Medicine; ATTEND Internal Medicine
DX: R10.9 Unspecified abdominal pain (principal); N13.6 Pyonephrosis; K92.1 Melena; I48.20 Chronic atrial fibrillation, unspecified; I10 Essential (primary) hypertension; F31.9 Bipolar disorder, unspecified; K21.9 Gastro-esophageal reflux disease without esophagitis; E03.9 Hypothyroidism, unspecified; J45.909 Unspecified asthma, uncomplicated; R13.10 Dysphagia, unspecified; E53.8 Deficiency of other specified B group vitamins; E55.9 Vitamin D deficiency, unspecified; M10.9 Gout, unspecified; E86.9 Volume depletion, unspecified; Z98.49 Cataract extraction status, unspecified eye; Z98.890 Other specified postprocedural states; Z87.891 Personal history of nicotine dependence; Z90.49 Acquired absence of other specified parts of digestive tract; Z81.8 Family history of other mental and behavioral disorders; Z80.1 Family history of malignant neoplasm of trachea, bronchus and lung

== ENCOUNTER 2021-05-10 14:29 | Emergency (ER) | payer OTHER ==
[~2021-05-10] VITALS: Wt 67.6 kg
[~2021-05-10 14:29] MED LIST changes: +'CIPRO500 M1 PO; +ALLOPURINOL100 MG PO; +TAMSULOSIN HCL0.4 MG PO; +TOPIRAMATE25 M3 PO; +VITAMIN D350 MCG PO
[2021-05-10 15:11] LABS: BASO % 0.6 % (0.0-1.0); EOS # 0.2 10*3/uL (0.0-0.4); EOS % 2.8 % (1.0-4.0); HEMATOCRIT 41.1 % (37.0-47.0); LYMPH # 1.5 10*3/uL (1.3-4.4); LYMPH % 28.5 % (27.0-41.0); MEAN CELL VOLUME 98.8 fl (81.0-99.0); MEAN CORPUSCULAR HGB 31.3 pg (27.0-31.0); MEAN CORPUSCULAR HGB CONC 31.6 g/dl (33.0-37.0); MEAN PLATELET VOLUME 12.1 fl (9.6-12.3); MONO # 0.6 10*3/uL (0.1-1.0); MONO % 10.4 % (3.0-9.0); NEUT # 3.1 10*3/uL (2.3-7.9); NEUT % 57.5 % (47.0-73.0); PLATELET COUNT AUTOMATED 106 10*3/uL (130-400); RED BLOOD COUNT 4.16 10*6/uL (4.10-5.10); RED CELL DISTRI WIDTH 13.8 % (0-14.5); WHITE BLOOD COUNT 5.3 10*3/uL (4.8-10.8)
[2021-05-10 15:27] LABS: ALBUMIN 3.2 gm/dl (3.1-4.5); ALKALINE PHOSPHATASE 109 U/L (45-117); BUN 12 mg/dl (7-24); CHLORIDE 113 mmol/L (98-107); CREATININE 0.94 mg/dL (0.55-1.02); POTASSIUM 3.8 mmol/L (3.5-5.1); SGOT/AST 49 IU/L (3-35); SGPT/ALT 38 U/L (12-78); SODIUM 144 mmol/L (136-145); TOTAL PROTEIN 6.8 gm/dL (6.4-8.2)
[2021-05-10 17:57] LABS: BILIRUBIN 1+ (Negative); BLOOD 3+ (Negative); CLARITY Turbid (Clear); COLOR Orange (Yellow); GLUCOSE Negative (Negative); KETONE Negative (Negative); LEUKO ESTERASE 1+ (Negative); NITRITE Negative (Negative); SPECIFIC GRAVITY 1.025 (1.001-1.030); UROBILINOGEN 0.2 E.U./dl (0.0-1.0)
[2021-05-10 18:10] LABS: RBC TNTC rbc/hpf (0-2); WBC TNTC wbc/hpf (0-5)
== END 2021-05-10 19:45 | disposition short-term general hospital (02) ==
LOC: ED 14:29
PROVIDERS: Emergency Medicine
DX: N13.2 Hydronephrosis with renal and ureteral calculous obstruction (principal); N39.0 Urinary tract infection, site not specified; R11.10 Vomiting, unspecified; J45.909 Unspecified asthma, uncomplicated; I48.91 Unspecified atrial fibrillation; F31.9 Bipolar disorder, unspecified; K21.9 Gastro-esophageal reflux disease without esophagitis; E03.9 Hypothyroidism, unspecified; I12.9 Hypertensive chronic kidney disease with stage 1 through stage 4 chronic kidney disease, or unspecified chronic kidney disease; N18.9 Chronic kidney disease, unspecified; Z79.899 Other long term (current) drug therapy; Z79.82 Long term (current) use of aspirin; Z87.442 Personal history of urinary calculi; Z86.73 Personal history of transient ischemic attack (TIA), and cerebral infarction without residual deficits; Z90.89 Acquired absence of other organs; Z90.49 Acquired absence of other specified parts of digestive tract; Z90.711 Acquired absence of uterus with remaining cervical stump; Z87.891 Personal history of nicotine dependence

== ENCOUNTER → 2021-11-06 | Outpatient (CLI) | payer OTHER ==
[2021-11-06 10:16] LABS: BASO # 0.1 10*3/uL (0.0-0.1); EOS # 0.6 10*3/uL (0.0-0.4); EOS % 9.8 % (1.0-4.0); HEMATOCRIT 40.9 % (37.0-47.0); LYMPH # 2.3 10*3/uL (1.3-4.4); MEAN CELL VOLUME 96.5 fl (81.0-99.0); MEAN CORPUSCULAR HGB CONC 31.1 g/dl (33.0-37.0); MEAN PLATELET VOLUME 12.3 fl (9.6-12.3); MONO # 0.6 10*3/uL (0.1-1.0); MONO % 10.3 % (3.0-9.0); NEUT # 2.6 10*3/uL (2.3-7.9); NEUT % 41.7 % (47.0-73.0); PLATELET COUNT AUTOMATED 162 10*3/uL (130-400); RED BLOOD COUNT 4.24 10*6/uL (4.10-5.10); RED CELL DISTRI WIDTH 15.4 % (0-14.5); WHITE BLOOD COUNT 6.1 10*3/uL (4.8-10.8)
[2021-11-06 10:36] LABS: CREATININE 1.08 mg/dL (0.55-1.02); POTASSIUM 4.5 mmol/L (3.5-5.1)
[2021-11-06 10:41] LABS: FREE T4 0.69 ng/dl (0.76-1.46); TOTAL PROTEIN 7.2 gm/dL (6.4-8.2)
== END ==
LOC: LAB 09:37
PROVIDERS: ATTEND Internal Medicine
DX: R07.9 Chest pain, unspecified (principal); Z79.899 Other long term (current) drug therapy

== ENCOUNTER → 2021-11-12 | Outpatient (CLI) | payer OTHER | END | disposition home or self-care (01) | LOC: COVID19 15:08 | PROVIDERS: ATTEND Internal Medicine | DX: Z20.822 Contact with and (suspected) exposure to COVID-19 (principal) ==

== ENCOUNTER 2023-01-16 14:28 | Emergency (ER) | payer OTHER ==
[~2023-01-16] VITALS: Ht 165.1 cm; Wt 67.6 kg
== END 2023-01-16 17:13 | disposition home or self-care (01) ==
LOC: ED 14:28
DX: S93.402A Sprain of unspecified ligament of left ankle, initial encounter (principal); K21.9 Gastro-esophageal reflux disease without esophagitis; J45.909 Unspecified asthma, uncomplicated; E11.9 Type 2 diabetes mellitus without complications; I10 Essential (primary) hypertension; Z87.442 Personal history of urinary calculi; F41.9 Anxiety disorder, unspecified; F32.A Depression, unspecified; I48.91 Unspecified atrial fibrillation; Z90.89 Acquired absence of other organs; Z90.711 Acquired absence of uterus with remaining cervical stump; Z90.49 Acquired absence of other specified parts of digestive tract; Z98.890 Other specified postprocedural states; Z87.891 Personal history of nicotine dependence; X58.XXXA Exposure to other specified factors, initial encounter; Y93.89 Activity, other specified; Y92.89 Other specified places as the place of occurrence of the external cause; Y99.8 Other external cause status

== ENCOUNTER → 2023-10-10 | Outpatient (CLI) | payer OTHER ==
[~2023-10-10] MED LIST changes: +ASPIRIN ADULT L81 M2 PO; +CEFTRIAXONE1 GM IJ; +SEPTDS PO
== END | disposition home or self-care (01) ==
LOC: ORTHO 01:23
PROVIDERS: ATTEND Orthopaedic Surgery
DX: S72.034D Nondisplaced midcervical fracture of right femur, subsequent encounter for closed fracture with routine healing (principal); Z96.0 Presence of urogenital implants; X58.XXXD Exposure to other specified factors, subsequent encounter